=== PATIENT | male | born 1985 | race Two or more races ===

== ENCOUNTER 2025-04-02 22:21 | Emergency (ER) | payer MEDICAID, SELFPAY ==
[2025-04-02 22:22] VITALS: BMI 24.7
[2025-04-02 22:31] VITALS: BP 159/85; PULSE 88; RESP 18; TEMP 36.6; O2SAT 98
--- NOTE | 2025-04-02 22:35 | EKG_ITS ---
[facility] Test Date: 2025-04-02 Pat Name: GODFREY HOWELL Department: Room: - Gender: Male [employer]: : 1985 Requested By: Clifford Cook Order Number: [id number] Reading MD: Clifford Cook Measurements Intervals [place] Rate: 79 P: 53 LA: 148 QRS: 15 QRSD: 77 T: 48 QT: 372 QTc: 427 Interpretive Statements SINUS RHYTHM No previous ECG available for comparison /store/S0/[id number]/[id number].pdf
[2025-04-02] MEDS: INSULIN HUM REGULAR 1 UNIT/0.01 ML (PER UNIT) 10 UNIT IV (23:14)
[2025-04-02] MEDS: RINGERS LACTATED 500 ML 500 ML 999 ML IV (23:20)
[2025-04-02 23:21] LABS: Basophils # (Auto) 0.0 Thou/mm3 (0.0-0.2); Basophils % (Auto) 1 % (0-2.5); Eosinophils # (Auto) 0.2 Thou/mm3 (0.0-0.5); Eosinophils % (Auto) 3 % (0-10); Hematocrit 39.0 % (41.0-53.0); Hemoglobin 13.9 g/dL (13.5-16.0); Immature Granulocytes Auto 0.11 Thou/mm3 (0.00-0.00); Lymphocytes # (Auto) 2.2 Thou/mm3 (1.0-4.8); Lymphocytes % (Auto) 33 % (10-50); Mean Corpuscular HGB Conc 35.6 g/dl (31.0-37.0); Mean Corpuscular Hemoglobin 32.6 pg (25.0-35.0); Mean Corpuscular Volume 91 fL (80-100); Monocytes # (Auto) 0.8 Thou/mm3 (0.0-0.8); Monocytes % (Auto) 12 % (0-12); Neutrophils # (Auto) 3.4 Thou/mm3 (1.8-7.7); Neutrophils % (Auto) 50 % (37-80); Nucleated Red Blood Cell # 0.00 Thou/mm3 (0.00-0.00); Nucleated Red Blood Cell % 0 /100 WBC (0); Platelet Count 292 Thou/mm3 (140-440); RDW Standard Deviation 40.8 fL (35.1-43.9); Red Blood Count 4.27 Miln/mm3 (4.50-5.90); White Blood Count 6.7 Thou/mm3 (3.8-10.6)
[2025-04-02 23:35] LABS: Base Excess, Venous 2 (-3-3); O2 Saturation, Venous 75 % (96-97); PCO2, Venous 49 mmHg (36-56); PO2, Venous 39 mmHg (15-58); pH, Venous 7.38 (7.33-7.66)
[2025-04-02 23:41] LABS: Alanine Aminotransferase 51 U/L (10-49); Albumin, Serum 4.0 gm/dL (3.5-5.0); Albumin/Globulin Ratio 1.7 (1.2-2.2); Alkaline Phosphatase 238 U/L (46-116); Anion Gap 10 (7-16); Aspartate Amino Transferase 18 U/L (0-34); BUN/Creatinine Ratio 15 Ratio (12-20); Bilirubin,Total 0.3 mg/dL (0.3-1.2); Blood Urea Nitrogen 16 mg/dL (9-23); Calcium 8.9 mg/dL (8.3-10.6); Calcium (Corrected) 8.9 mg/dL (8.5-10.1); Carbon Dioxide 26.7 mMol/L (20.0-31.0); Chloride 102 mMol/L (98-107); Creatinine (Component) 1.1 mg/dL (0.6-1.3); Estimated Creatinine Clearance 70.3 mL/min (>60); Globulin 2.3 gm/dL (2.3-3.5); Potassium 3.6 mMol/L (3.4-5.1); Sodium 139 mMol/L (136-145); Total Protein 6.3 gm/dL (5.7-8.2); Troponin I < 0.020 ng/mL (0.0-0.045); eGFR > 60 See Note
[2025-04-02 23:50] LABS: Collection Type, Urine Clean Catch; Squamous Epithelial Cell,Urine 0 /hpf (0-5)
[2025-04-02 23:57] LABS: Bilirubin,Urine Negative (Negative); Blood,Urine Negative (Negative); Clarity,Urine Clear (Clear/Hazy); Color,Urine Colorless (Lt Yel-Yel); Glucose, Urine 4+ (Negative); Ketones,Urine Negative (Negative); Leukocyte Esterase,Urine Negative (Negative); Nitrite,Urine Negative (Negative); PH,Urine 7.0 (5.0-7.0); Protein,Urine Negative (Neg - Trace); RBC,Urine 1 /hpf (0-3); Specific Gravity,Urine 1.035 (1.001-1.035); Urobilinogen,Urine Negative mg/dL (0.0-1.0); WBC,Urine < 1 /hpf (0-5)
[2025-04-03] LABS: Osmolality,Calculated 300 (275-295)
[2025-04-03 00:01] LABS: Glucose 491 mg/dL (74-106)
[2025-04-03 00:57] VITALS: BP 132/82; PULSE 76; RESP 18; TEMP 36.8; O2SAT 98
[2025-04-03 03:36] VITALS: BP 123/76; PULSE 71; RESP 16; TEMP 36.7; O2SAT 98
--- NOTE | 2025-04-03 03:41 | EDNOTE_ITS ---
ED General RME/HPI General Chief complaint: General Adult/Misc Complain Stated complaint: HIGH BLOOD GLUCOSE Time Seen by Provider: 04/02/25 22:25 Arrival date/time: 04/02/25 22:21 This is a case of 40-year-old male with no medical history came in in the emergency room due to his blood sugar in the clinic noted to be 450 patient had a physical yesterday and noted that her blood sugar was high he got a call from the clinic and advised to go to the emergency room patient remained asymptomatic no chest pain no shortness of breath no palpitation no general weakness no abdominal pain dizziness headache or any symptoms Limitations: no limitations Related Data Previous Rx's ?Medication ?Instructions ?Recorded amoxicillin 875 mg-potassium 1 tab PO BID #14 tabs 12/17 clavulanate 125 mg tablet amoxicillin 875 mg-potassium 1 tab PO BID #14 tabs 12/17 clavulanate 125 mg tablet metformin 500 mg tablet 500 mg PO BID #60 tabs 04/03 Allergies Allergy/AdvReac Type Severity Reaction Status Date / Time No Known Allergies Allergy Verified 04/02/25 22:22 Review of Systems Review of Systems Systems Reviewed: All systems reviewed, normal except as documented Past Medical History Past Medical History CARDIAC: Negative Cardiac Disorders or Congestive Heart Failure RESPIRATORY: Negative Chronic Obstructive Pulmonary Disease (COPD) GENITOURINARY: Negative Renal Disease ENDOCRINE: Positive Diabetes Mellitus Type 2; Negative Diabetes Mellitus Type 1 Family History FAMILY HISTORY: Negative Family Cardiac Disorders Social History SMOKING STATUS: Never smoker ED Exam General Limitations: Present no limitations General appearance: Present alert, in no apparent distress and other (Patient is awake alert oriented not in distress nontoxic looking well-hydrated well nourisedh) Head Head exam: Present atraumatic, normocephalic and normal inspection Eye Eye exam: Present normal appearance, PERRL and EOMI ENT ENT exam: Present normal exam, normal oropharynx and mucous membranes moist Neck Neck exam: Present normal inspection, full ROM and trachea midline; Absent tenderness, meningismus, lymphadenopathy or thyromegaly Chest Chest inspection: Present normal inspection and symmetric chest wall rise; Absent tenderness Respiratory Respiratory exam: Present normal lung sounds bilaterally; Absent respiratory distress, wheezes, stridor, accessory muscle use or prolonged expiratory phase Cardiovascular Cardiovascular exam: Present regular rate, normal rhythm and normal heart sounds; Absent bradycardia, tachycardia, irregular rhythm, systolic murmur or diastolic murmur Abdominal Exam Abdominal exam: Present soft and normal bowel sounds; Absent distention, tenderness, guarding, rebound, rigidity, diminished bowel sounds, hyperactive bowel sounds, hypoactive bowel sounds or organomegaly Extremities Exam Extremities exam: Present normal inspection and full ROM Back Exam Back exam: Present normal inspection and full ROM Neurological Exam Neurological exam: Present alert, oriented X3, CN II-XII intact, normal gait and reflexes normal; Absent motor sensory deficit Psychiatric Psychiatric exam: Present normal affect and normal mood Skin Skin exam: Present warm, dry, intact and normal color Course Quality Measures none Orders Category Date Time Status EKG (ED ONLY) *Do not use* NOW Care 04/02/25 22:35 Completed EKG (ED Only) Stat Exams 04/02/25 22:35 Draft CBC Stat Lab 04/02/25 22:57 Completed Comprehensive Metabolic Panel Stat Lab 04/02/25 22:57 Completed Hemoglobin A1C [Glycohemoglobin w (eAG)] Stat Lab 04/03/25 04:31 Completed Troponin I Stat Lab 04/02/25 22:57 Completed Urinalysis Stat Lab 04/02/25 23:34 Completed Venous Blood Gas Stat Lab 04/02/25 22:57 Completed Insulin Regular Med 04/02/25 22:35 Discontinued 10 unit IV X1 ONE Ringers Lactated 500 ml [Lactated Ringers] 500 ml Med 04/02/25 22:35 Discontinued IV 999 mls/hr Vital Signs Vital signs: Vital Signs Temperature 97.9 F 04/02/25 22:31 Pulse Rate 88 04/02/25 22:31 Respiratory Rate 18 04/02/25 22:31 Blood Pressure 159/85 H 04/02/25 22:31 Pulse Oximetry (%) 98 04/02/25 22:31 Oxygen Delivery Method Room Air 04/02/25 22:31 Oxygen saturation is 98% room air Discharge Plan Plan Patient Disposition: HOME (Self Care) Patient condition on transfer: Stable Prescriptions/Referrals Prescriptions/Med Rec: New metformin 500 mg tablet 500 mg PO BID Qty: 60 0RF No Action amoxicillin-pot clavulanate 875-125 mg tablet 1 tab PO BID Qty: 14 0RF amoxicillin-pot clavulanate 875-125 mg tablet 1 tab PO BID Qty: 14 0RF Referrals: Luciano Cruz MD [Primary Care Provider, Family Practice] - In 1 week Problem List Clinical Impression: Hyperglycemia, Diabetes mellitus, new onset Patient/Caregiver Discharge Instructions Education Materials: High Blood Sugar (Hyperglycemia), Diabetes Exercise Get Started, Diabetes Exercise Plan, ED Diabetes- Overview Additional Instructions: It is very important to see an academic specialist for further evaluation and treatment of your diabetes follow-up with your primary care physician in 2 days for reevaluation of your hyperglycemia and new onset diabetes it is very important to check your blood sugar twice a day and record and bring it to your next doctor appointment if your blood sugar greater than 250 or less than 80 or become symptomatic return to the emergency room immediately or call 911 worsening symptoms recurrence of the symptoms or any emergent concern return to the emergency room immediately or call 911 diabetic diet low carbs low sugar diet is advised regular exercise advised keep hydrated Print Language: Maori Stand Alone Forms: [employer] Award Info., Patient Portal Info Letter PA/REGIONAL EDUCATION MANAGER Supervising Physician PA/REGIONAL EDUCATION MANAGER Supervising Physician: Dr. Ronak Wilder MDM Narrative MDM hospital course (for use when minimal MDM required): This is a case of 40-year-old male with no medical history came in in the emergency room due to his blood sugar in the clinic noted to be 450 patient had a physical yesterday and noted that her blood sugar was high he got a call from the clinic and advised to go to the emergency room patient remained asymptomatic no chest pain no shortness of breath no palpitation no general weakness no abdominal pain dizziness headache or any symptoms physical examination patient is awake alert oriented not in distress nontoxic looking well-hydrated well- nourished vital signs stable BP stable not tachycardic not tachypneic afebrile lungs sound is clear breath sounds no wheezing no rhonchi no crackles no rales no retraction no stridor heart normal rate regular rhythm no murmur neurological exam is normal and unremarkable the rest of the physical examination neurological exam is normal and patient blood test showed no leukocytosis no anemia kidney and liver function is normal no electrolyte imbalance anion gap is negative thus the patient is not having DKA patient blood sugar is 491 a bolus of normal saline was given and regular insulin 10 units patient blood sugar repeat was 229 patient hemoglobin A1c is 9.[address] Mckeon regarding patient patient this not required any admission in spite of that the patient is newly diagnosed diabetes I was instructed to give patient metformin 500 and needs to follow-up with PCP in 2 days for reevaluation diabetic diet is also advised for any emergent concern return precaution in the ER is advised Patient was discharged with comfortable condition walking with stable gait. Patient verbalized no further complains explained diagnosis and answered patient question. Patient is comfortable with the proposed management plan including the need to follow up with his/her primary care physician and any specialist if applicable Discussed patient for any urgent condition or worsening sx, He/She needed to go to emergency room immediately or call 911. Patient acknowledge the responsibility to follow up as instructed and to monitor her/his symptoms. For any persistence of the symptoms for more than 3-5 days return precaution advised. Discussed the result of the test and was given printed discharge instruction Medical Records reviewed [facility] Meds/Rx considered, not ordered describe: given Labs/Rad/Tests considered, not ordered Describe: done Chronic Illness/Social Conditions which may negatively complicate care or outcome(s)-explain: None or not applicable EKG Interpretation EKG #1: EKG Interpretation: normal ekg Labs Labs: interpreted by il Lab(s) Interpretation(s): nromal labs except glucose 491 hemopglobia aic 9.4 not dks anion and venous blood glass nromal Medication Administration(s) none (given) Medication Administration History Discontinued Medications Lactated Ringer's (Lactated Ringers) 500 mls @ 999 mls/hr IV .Q31M ONE Stop: 04/02/25 23:05 Last Infusion: 04/02/25 23:51 Dose: Infused Documented By: Admin: 04/02/25 23:20 Dose: 999 mls/hr Documented By: Insulin Human Regular (Insulin Hum Regular 1 Unit/0.01 Ml (Per Unit)) 10 unit IV X1 ONE Stop: 04/02/25 22:36 Last Admin: 04/02/25 23:14 Dose: 10 unit Documented By: Co-signed By: NAEL given Diagnosis Differential Diagnosis ED Complaint MDM: Hyperglycemia Diagnoses ruled out and/or further discussions: Hyperglycemia
[2025-04-03 05:24] LABS: Glucose Estimated Average 223 mg/dL (80-131); Hemoglobin A1C 9.4 % Hgb (4.8-6.0)
[2025-04-03 05:37] VITALS: BP 124/78; PULSE 79; RESP 18; TEMP 36.6; O2SAT 98
== END 2025-04-03 05:40 | disposition home or self-care (01) ==
PROVIDERS: Nurse Practitioner Family; Emergency Provider Emergency Medicine; PCP Family Medicine
DX: E11.65 Type 2 diabetes mellitus with hyperglycemia (principal); Z79.84 Long term (current) use of oral hypoglycemic drugs
CPT/HCPCS: 36415; 80053; 81001; 82010; 82803; 83036; 84484; 85025; 93005; 96360; 99283; J1815; J7120